=== PATIENT | male | born 1975 | race Caucasian/White ===

== ENCOUNTER 2016-10-29 07:22 | Emergency (ER) | payer SELFPAY ==
[2016-10-29 07:50] LABS: BASOPHIL 0.4 % (0-2); EOSINOPHIL 2.2 % (0-5); HCT 47.5 % (42.0-52.0); HGB 16.7 g/dl (13.2-18.0); LYMPHOCYTE 29.8 % (15-48); MCH 31.6 pg (25.0-31.0); MCHC 35.2 g/dL (32.0-36.0); MCV 89.8 fL (78.0-100.0); MONOCYTE 7.2 % (0-12); MPV 9.5 fL (6.0-9.5); NEUTROPHIL 60.4 % (41-80); PLT 355 K/uL (150-400); RBC 5.29 M/uL (4.70-6.00); RDW 12.7 % (11.5-14.0); WBC 9.7 K/uL (4.0-10.5)
[2016-10-29 07:55] LABS: ALBUMIN 4.3 g/dL (3.5-5.0); BILIRUBIN - TOTAL 0.3 mg/dL (0.1-1.0); CREATININE 0.8 mg/dL (0.7-1.2); GLOBULIN (CALCULATION) 2.6 g/dL (2.2-4.2); POTASSIUM 4.2 mmol/L (3.5-5.1); TOTAL PROTEIN 6.9 g/dL (6.4-8.3)
[2016-10-29 07:56] LABS: PRO-BNP 88 pg/mL (0-125); PROTHROMBIN TIME 11.8 SECONDS (11.7-14.0); TROPONIN T < 0.010 ng/mL
[2016-10-29 07:57] LABS: D-DIMER < 0.27 ug/mLFEU (0.00-0.41)
== END 2016-10-29 11:46 | disposition other institution (70) ==
LOC: FER 07:22
PROVIDERS: Emergency Medicine
DX: R07.2 Precordial pain (principal); M54.9 Dorsalgia, unspecified; G89.29 Other chronic pain; Z82.49 Family history of ischemic heart disease and other diseases of the circulatory system; Z88.5 Allergy status to narcotic agent; Z79.899 Other long term (current) drug therapy
CPT/HCPCS: 36415; 71010; 80053; 83690; 83880; 84484; 85025; 85379; 85610; 93005; J2270; J2405